=== PATIENT | female | born 1990 | race Caucasian/White ===

== ENCOUNTER 2016-10-28 14:12 | Emergency (ER) | payer MEDICAID ==
[2016-10-28 14:37] VITALS: PULSE 81
[2016-10-28] MEDS ORDERED: clonazePAM 0.5 MG TAB PO ONE (15:11)
--- NOTE | 2016-10-28 15:25 | EDPHY ---
H & P Time Seen by Provider: 10/28/16 14:36 HPI/ROS: HPI Pseudo-seizure, head injury. 26-year-old female by ambulance from special needs home. Here with her caregiver. History of pseudoseizures. She apparently had a typical pseudo- seizure and banged the right side back of her head against a piece of furniture. There was no loss of consciousness. No change in her mental status. She complains of some neck pain to the EMS staff was placed in a cervical collar. She currently denies headache. She denies neck pain. No numbness or weakness in her extremities. She has not had any vomiting. ROS: Constitutional: No fever, no chills. No weakness. Eyes: No discharge. No changes in vision. ENT: No sore throat. No nasal congestion or rhinorrhea. Respiratory: No cough. No shortness of breath. Cardiac: No chest pain, no palpitations. Gastrointestinal: No abdominal pain, no vomiting, no diarrhea. Genitourinary: No hematuria. No dysuria or increased frequency with urination. Musculoskeletal: No back pain. No neck pain. No myalgias or arthralgias. Skin: No rashes. Neurological: As above. No focal weakness or altered sensation. Past medical history: Developmentally delayed, PTSD, schizophrenia, behavioral disorder, pseudoseizures. She is not on antiplatelet or anticoagulation agents. Social history: Here with her caregiver. Physical Exam: General Appearance: Alert, no distress. This patient is responding to questions appropriately . This patient appears well-hydrated and well- nourished. Head: Normocephalic atraumatic except for a minor right-sided suboccipital scalp contusion without laceration. No bony step-off or deformity noted on palpation of this area. Face: Facial bones are stable on palpation. Eyes: Pupils equal and round and reactive to light, no pallor or injection. No lid erythema or edema. ENT, Mouth: Mucous membranes moist. Dentition is intact. No malocclusion of the jaw. No tongue lacerations or abrasions. Pharynx is clear. The bilateral nasal canals are clear. No septal hematoma. Respiratory: There are no retractions, lungs are clear to auscultation with good air movement bilaterally. Chest wall is stable to AP and lateral palpation. Cardiovascular: Regular rate and rhythm. No murmur. Gastrointestinal: Abdomen is soft and nontender, no masses, bowel sounds normal. Neurological: Motor sensory function is intact. Cranial nerves are normal. Cerebellar function intact. Skin: Warm and dry, no rashes. No lacerations, abrasions or contusions. Musculoskeletal: Neck is supple and nontender. The trachea is midline. No midline cervical, thoracic, lumbar or sacral tenderness on palpation. No flank tenderness on palpation. Extremities are symmetrical, full range of motion. All joints in the bilateral upper and bilateral lower extremities range without pain or impingement. No tenderness on palpation of the long bones in the bilateral upper and bilateral lower extremities. Psychiatric: No agitation. No depression. Database: EKG: Imaging: Procedures: Emergency department course: 3:00 p.m., patient's cervical collar was clinically cleared on my evaluation. She is at her baseline mental status. She was given her 3 o'clock dose of 0.5 mg of oral clonazepam which her caregiver requested we give her. Her trauma exam an emergency department evaluation is otherwise unremarkable. I feel she is safe for discharge. The caregiver is comfortable taking her home. Return to emergency department precautions discussed. All their questions were answered. She was discharged in good condition. Differential Diagnosis: The differential diagnosis on this patient includes but is not limited to pseudoseizures versus breakthrough seizure, head injury. Her traumatic brain injury, traumatic subarachnoid hemorrhage, epidural hematoma, subdural hematoma , cervical spine fracture subluxation dislocation, other significant traumatic injury unlikely. This represents a partial list of diagnoses considered. These considerations are based on history, physical exam, past history and reassessment. Smoking Status: Never smoked Constitutional: Initial Vital Signs Temperature (C) 36.3 C 10/28/16 14:34 Heart Rate 81 10/28/16 14:34 Respiratory Rate 18 10/28/16 14:34 Blood Pressure 103/66 10/28/16 14:34 O2 Sat (%) 100 10/28/16 14:34 O2 Delivery Mode Room Air Allergies/Adverse Reactions: No Known Allergies Allergy (Unverified 10/28/16 14:29) Home Medications: Medication Instructions Recorded Clonazepam 10/28/16 INVEGA 10/28/16 Keppra 10/28/16 Lamictal 10/28/16 MDM/Departure - MDM Medications Given: Discontinued Medications Clonidine (Catapres) 0.5 mg PO EDNOW ONE Stop: 10/28/16 15:08 Last Admin: 10/28/16 15:10 Dose: Not Given - Depart Disposition: Home, Routine, Self-Care Clinical Impression: Seizure disorder, Injury of head Condition: Good Instructions: Head Injury (ED) Additional Instructions: Read and follow provided instructions. Follow-up with your primary care physician in 1-2 days for re-evaluation as needed. Continue medications as prescribed. Return to the emergency department for worsening headache, change in mentation, vomiting, worsening symptoms or other serious concerns.
[2016-10-28] MEDS ORDERED: ACETAMINOPHEN 325 MG TAB ONE (15:44)
[2016-10-28 15:54] VITALS: BP 110/74; RESP 16; TEMP 97.9; O2SAT 94
[2016-10-28] MEDS ORDERED: ACETAMINOPHEN 325 MG TAB PO ONE (15:54)
== END 2016-10-28 16:05 | disposition home or self-care (01) ==
DX: S09.90XA Unspecified injury of head, initial encounter (principal); G40.909 Epilepsy, unspecified, not intractable, without status epilepticus; X58.XXXA Exposure to other specified factors, initial encounter

== ENCOUNTER 2019-03-14 15:14 | Emergency (ER) | payer MEDICAID ==
--- NOTE | 2019-03-14 16:43 | EDPHY ---
H & P Time Seen by Provider: 03/14/19 16:22 HPI/ROS: HPI Possible seizure. 28-year-old female by ambulance with care provider. She has a history of schizophrenia, a seizure disorder as well as pseudoseizures which occur when she is seeking attention. She was with new staff members as care providers. She had an apparent seizure witnessed by other people in public. These in experienced staff members then had her sent to the emergency department for evaluation. The care provider who is the lead care provider and who is with her currently in the emergency department tells me that this is typical of her behavior. The care provider does not feel that she needs to be in the emergency department and does not feel that she had an actual seizure. The patient currently has no complaints. ROS: Constitutional: No fever, no chills. As above. Eyes: No discharge. No changes in vision. ENT: No sore throat. No nasal congestion or rhinorrhea. Respiratory: No cough. No shortness of breath. Cardiac: No chest pain, no palpitations. Gastrointestinal: No abdominal pain, no vomiting, no diarrhea. Genitourinary: No hematuria. No dysuria or increased frequency with urination. Musculoskeletal: No back pain. No neck pain. No myalgias or arthralgias. Skin: No rashes. Neurological: No headache. No focal weakness or altered sensation. Past medical history: Developmentally delayed, schizophrenia, seizure disorder , pseudoseizures, extended release control, behavioral issues. Social history: Nonsmoker. She is here with her primary care provider. No alcohol. Physical Exam: General Appearance: Alert, no distress. This patient is responding to questions appropriately at baseline. This patient appears well-hydrated and well-nourished. Head: Normocephalic atraumatic. Eyes: Pupils equal and round no pallor or injection. No lid edema, erythema or injection. No photophobia. ENT, Mouth: Mucous membranes are moist. The pharyngeal tissues are unremarkable. No edema or swelling. No asymmetry suggestive of abscess. No erythema or exudates. No tongue lacerations or abrasions. Respiratory: There are no retractions, lungs are clear to auscultation with good air movement bilaterally. Cardiovascular: Regular rate and rhythm. No murmur. Gastrointestinal: Abdomen is soft and nontender, no masses, bowel sounds normal. No focal tenderness at McBurney's point. No Fernando sign. Neurological: Motor sensory function is grossly intact. Cranial nerves are normal. Gait is normal. Skin: Warm and dry, no rashes. Musculoskeletal: Neck is supple and nontender. Extremities are symmetrical. All joints range without pain or impingement. Psychiatric: No agitation. No depression. Database: EKG: Imaging: Procedures: Emergency department course: Triage vital signs reviewed and are normal. After my evaluation I discussed my impression with her care provider. The care provider feels comfortable taking her home. Follow-up and return to emergency department precautions reviewed with care provider. All of her questions were answered. The patient was discharged in good condition with her care provider. Differential Diagnosis: The differential diagnosis on this patient includes but is not limited to pseudo -seizure, history of seizure disorder with breakthrough seizure. Traumatic injury unlikely. Hypoglycemia, hyponatremia, meningitis, encephalitis, intracranial mass unlikely. This represents a partial list of diagnoses considered. These considerations are based on history, physical exam, past history, reassessment and diagnostic testing. Smoking Status: Never smoked Constitutional: Initial Vital Signs Temperature (C) 36.9 C 03/14/19 15:22 Heart Rate 96 03/14/19 15:22 Respiratory Rate 17 03/14/19 15:22 Blood Pressure 112/70 03/14/19 15:22 O2 Sat (%) 97 03/14/19 15:22 O2 Delivery Mode Room Air Allergies/Adverse Reactions: No Known Allergies Allergy (Unverified 10/28/16 14:29) Home Medications: Medication Instructions Recorded Clonazepam 10/28/16 INVEGA 10/28/16 Keppra 10/28/16 Lamictal 10/28/16 Departure - Departure Disposition: Home, Routine, Self-Care Clinical Impression: Pseudoseizure Condition: Good Instructions: Recurrent Seizures in Adults (ED) Additional Instructions: Read and follow provided instructions. Follow-up with your primary care physician in as needed in 1-2 days. Continue taking medication as prescribed. Return to the emergency department for worsening symptoms or other serious concerns. Referrals: Unknown,Unknown [Primary Care Provider] - As per Instructions
[2019-03-14 17:07] VITALS: BP 109/78
== END 2019-03-14 17:06 | disposition home or self-care (01) ==
LOC: EDUNIT#
DX: G40.909 Epilepsy, unspecified, not intractable, without status epilepticus (principal)